=== PATIENT | male | born 1950 | race Caucasian/White ===

== ENCOUNTER 2018-08-12 23:54 | Emergency (ER) | payer OTHER ==
[2018-08-13] MEDS ORDERED: Adacel (T-DAP) 0.5 ML VIAL ONE (00:08)
[2018-08-13] MEDS ORDERED: Lidocaine 1% PF 5 ML VIAL ONE (00:09)
[2018-08-13] MEDS ORDERED: Bacitracin Zinc 1 Packet ONE (00:52)
== END 2018-08-13 01:00 | disposition home or self-care (01) ==
LOC: SCSER 23:54
DX: S61.212A Laceration without foreign body of right middle finger without damage to nail, initial encounter (principal); I25.10 Atherosclerotic heart disease of native coronary artery without angina pectoris; I10 Essential (primary) hypertension; E78.5 Hyperlipidemia, unspecified; Z23 Encounter for immunization; Z79.899 Other long term (current) drug therapy; Z79.82 Long term (current) use of aspirin; W26.8XXA Contact with other sharp object(s), not elsewhere classified, initial encounter
CPT/HCPCS: 12001; 90471; 90715; J2001

== ENCOUNTER 2020-07-23 19:30 | Outpatient (CLI) | payer OTHER | END 2020-07-23 19:31 | disposition home or self-care (01) | LOC: SLEEPLAB 19:30 | PROVIDERS: ATTEND Family Medicine | DX: G47.33 Obstructive sleep apnea (adult) (pediatric) (principal); R53.83 Other fatigue; R09.89 Other specified symptoms and signs involving the circulatory and respiratory systems; R06.83 Snoring; G47.00 Insomnia, unspecified; I25.10 Atherosclerotic heart disease of native coronary artery without angina pectoris; G47.10 Hypersomnia, unspecified; I10 Essential (primary) hypertension | CPT/HCPCS: 95810 ==